=== PATIENT | female | born 1990 | race Caucasian/White ===

== ENCOUNTER 2017-08-13 03:12 | Emergency (ER) | payer OTHER ==
[2017-08-13 03:21] VITALS: BP 110/72
[2017-08-13] MEDS ORDERED: ULTRAM PO ONE (04:17)
[2017-08-13] MEDS ORDERED: MOTRIN PO ONE (04:17)
[2017-08-13] MEDS ORDERED: ULTRAM ONE (04:17)
[2017-08-13] MEDS ORDERED: MOTRIN ONE (04:17)
--- NOTE | 2017-08-13 04:18 | XRay Report ---
FINAL REPORT EXAM: XR WRIST 3+V LT HISTORY: pain and swelling L wrist s/p injury COMPARISONS: None. FINDINGS: Three views left wrist At least 1 masses fragment measuring up to 7 millimeters is present at the dorsal aspect of the intercarpal region on lateral view with overlying soft tissue swelling. Carpal arcs appear intact on AP view. No other potential fractures are seen. Alignment is otherwise anatomic. IMPRESSION: A small triquetrum avulsion fracture is suggested on lateral view with overlying soft tissue swelling. Carpal alignment is otherwise anatomic.
--- NOTE | 2017-08-13 04:26 | Emergency Department Report ---
Upper Extremity - HPI Chief Complaint: Extremity Injury, Upper Stated Complaint: LT WRIST INJURY Time Seen by Provider: 08/13/17 04:17 Upper Extremity: Left Wrist Occurred When: 3 Days Mechanism: Fall Severity: severe Symptoms: Yes Pain with Movement, Yes Limited Range of Movement (pain), Yes Swelling, No Deformity, No Numbness, No Weakness Other History: 27-year-old -[place] female comes in for complaint of left wrist pain. Patient reports that she was on a counter in her [place] and slipped and fell and injured her left wrist. Patient reports this pain with extension and flexion. She reports that she's been dealing with swelling and pain. She has tried [id number] Tylenol which she took 800 mg did not help with the pain. He denies any past medical history currently takes no medications on a daily basis and has no known drug allergies. ED Review of Systems ROS: Stated complaint: LT WRIST INJURY Other details as noted in HPI Constitutional: denies: chills, fever Eyes: denies: eye pain, eye discharge, vision change ENT: denies: ear pain, throat pain Respiratory: denies: cough, shortness of breath, wheezing Cardiovascular: denies: chest pain, palpitations Endocrine: no symptoms reported Gastrointestinal: denies: abdominal pain, nausea, diarrhea Genitourinary: denies: urgency, dysuria, discharge Musculoskeletal: joint swelling (left wrist), arthralgia (left wrist). denies: back pain Skin: denies: rash, lesions Neurological: denies: headache, weakness, paresthesias Psychiatric: denies: anxiety, depression Hematological/Lymphatic: denies: easy bleeding, easy bruising ED Past Medical Hx - Past Medical History Previous Medical History?: Yes Additional medical history: Vaginal childbirth X1 - Surgical History Past Surgical History?: No - Social History Smoking Status: Never Smoker Substance Use Type: None - Medications Home Medications: Home Medications Medication Instructions Recorded Confirmed Last Taken Type Simethicone [Gas-X] 05/20/13 05/20/13 05/20/13 History guaiFENesin [Mucinex] 05/20/13 05/20/13 05/20/13 History HYDROcodone/ACETAMINOPHEN [[place] 1 each PO Q6H #12 tablet 08/13/17 Unknown Rx 7.5-325 Tablet] Ibuprofen 800 mg PO Q8H PRN #15 tablet 08/13/17 Unknown Rx Ibuprofen [Motrin 800 MG tab] 800 mg PO Q6H PRN #15 tablet 08/13/17 Unknown Rx Upper Extremity Exam - Exam General: Vital signs noted. No distress. Alert and acting appropriately. Head and Torso: Yes HEENT Abnormality, No Neck Tenderness Shoulder Exam: Yes Normal Range of Motion in Shoulder, No Shoulder Tenderness, No Clavicle Tenderness Arm Exam: No Arm/Humerus Tenderness, No Arm Deformity Elbow: Yes Normal Range of Motion in Elbow, No Elbow Tenderness, No Elbow Deformity Forearm: No Forearm Tenderness, No Forearm Deformity, No Pain with Pronation, No Pain with Supination Wrist: Yes Wrist Tenderness, Yes Normal ROM in Wrist (pain with flexion and distention), No Wrist Deformity, No Snuffbox Tenderness, No Pain with Axial Thumb Compression Hand: Yes Hand Tenderness, Yes Normal ROM in Digit(s), No Hand Deformity, No Digit Tenderness, No Digit(s) Deformity, No Tendon Dysfunction CMS Exam: Yes Normal Distal Pulses, Yes Normal Capillary Refill, Yes Normal Distal Sensation, No Broken Skin ED Course Vital Signs 08/13/17 03:15 Temperature 98.1 F Pulse Rate 87 Respiratory 18 Rate Blood Pressure 110/72 O2 Sat by Pulse 97 Oximetry ED Medical Decision Making - Radiology Data Radiology results: report reviewed, image reviewed FINDINGS: Three views left wrist At least 1 masses fragment measuring up to 7 millimeters is present at the dorsal aspect of the intercarpal region on lateral view with overlying soft tissue swelling. Carpal arcs appear intact on AP view. No other potential fractures are seen. Alignment is otherwise anatomic. IMPRESSION: A small triquetrum avulsion fracture is suggested on lateral view with overlying soft tissue swelling. Carpal alignment is otherwise anatomic. Transcribed By: MB Dictated By: GINGER BERRIOS MD Electronically Authenticated By: GINGER BERRIOS MD Signed Date/Time: 08/13/17 0413 - Medical Decision Making Patient's been evaluated by this provider fast track. I discussed with patient that she has an avulsion fracture of the triquetrum of her left wrist. His custody patient that we will splint her wrist give her prescription for pain medication and have her follow up with orthopedic in the next 3-5 days. Patient verbalized understanding. Critical care attestation.: If time is entered above; I have spent that time in minutes in the direct care of this critically ill patient, excluding procedure time. ED Disposition Clinical Impression: Fall Fracture of triquetrum of left wrist Qualifiers: Encounter type: sequela Fracture type: closed Fracture alignment: nondisplaced Qualified Code(s): S62.115S - Nondisplaced fracture of triquetrum [cuneiform] bone, left wrist, sequela Disposition: TO HOME OR SELFCARE Is pt being admited?: No Does the pt Need Aspirin: No Condition: Stable Instructions: Wrist Fracture in Adults (ED) Additional Instructions: Please take pain medication responsibly. Please do not operate heavy machinery while taking the [place]. Please follow up with orthopedics in the next few days. Please return back to the emergency room immediately if you have swelling T her fingertips they become swollen tender numbness. Prescriptions: HYDROcodone/ACETAMINOPHEN [[place] 7.5-325 Tablet] 1 each PO Q6H #12 tablet Ibuprofen 800 mg PO Q8H PRN #15 tablet PRN Reason: Pain Referrals: GINGER CONNELLY MD [Primary Care Provider] - 3-5 Days TYRESE NORRIS MD [Staff Physician] - 3-5 Days FLORENCE RAYA MD [Staff Physician] - 3-5 Days Forms: Work/School Release Form(ED)
== END 2017-08-13 04:54 | disposition home or self-care (01) ==
LOC: ED 03:12
DX: S62.112A Displaced fracture of triquetrum [cuneiform] bone, left wrist, initial encounter for closed fracture (principal); W19.XXXA Unspecified fall, initial encounter; Y93.89 Activity, other specified; Y92.89 Other specified places as the place of occurrence of the external cause; Y99.8 Other external cause status
CPT/HCPCS: 99283

== ENCOUNTER 2021-08-22 16:19 | Outpatient (CLI) | payer MEDICAID, OTHER ==
[2021-08-22 17:03] VITALS: BP 102/55
[2021-08-22] MEDS ORDERED: LACTATED RINGERS 500 ML IV ONE (17:19)
[2021-08-22 17:51] LABS: Bacteria,Urine 1+ /HPF (Negative); Bilirubin,Urine NEG (Negative); Blood,Urine NEG (Negative); Color,Urine Yellow (Yellow); Mucus,Urine FEW /HPF; Protein,Urine <15 mg/dL mg/dL (Negative); RBC,Urine < 1.0 /HPF (0.0-6.0)
== END 2021-08-22 18:45 | disposition home or self-care (01) ==
LOC: TRG 16:19 → APU 16:21 → TRG 18:45
PROVIDERS: ATTEND Student in an Organized Health Care Education/Training Program
DX: O26.892 Other specified pregnancy related conditions, second trimester (principal); R60.9 Edema, unspecified; Z3A.20 20 weeks gestation of pregnancy
CPT/HCPCS: 36415; 81001; 86695

== ENCOUNTER 2021-12-11 17:44 | Outpatient (CLI) | payer MEDICAID ==
[2021-12-11 20:06] VITALS: BP 116/62
== END 2021-12-11 20:35 | disposition home or self-care (01) ==
LOC: TRG 17:44 → APU 17:48 → TRG 20:35
PROVIDERS: ATTEND Obstetrics & Gynecology
DX: Z34.93 Encounter for supervision of normal pregnancy, unspecified, third trimester (principal); Z3A.36 36 weeks gestation of pregnancy
CPT/HCPCS: 36415; 84112